=== PATIENT | female | born 2000 | race Caucasian/White ===

== ENCOUNTER 2022-08-28 13:39 | Emergency (ER) | payer MEDICAID, SELFPAY ==
[2022-08-28 13:40] VITALS: BP 133/86; PULSE 98; RESP 16; TEMP 37.1; O2SAT 98; BMI 28.6
--- NOTE | 2022-08-28 14:00 | RAD_ITS ---
STUDY: X-RAY - RIGHT SHOULDER REASON FOR EXAM: Female, 21 years old. FALL -- IN [place] TECHNIQUE: 4 view(s) of the shoulder. COMPARISON: None. FINDINGS: Normal glenohumeral articulation. Normal acromioclavicular joint. Normal acromion. Normal humeral head and visualized proximal humerus. The soft tissue structures are unremarkable. Normal visualized pulmonary apex. There is evidence of screw and lainey fixation of the thoracic spine. RAD/Shoulder min 2 Views IMPRESSION: Normal x-ray examination of the shoulder. Electronically Signed: Harsh White MD at 14:39 EDT ,
[2022-08-28 15:08] VITALS: RESP 16
--- NOTE | 2022-08-28 15:08 | EDS_ITS ---
HPI History of Present Illness Chief Complaint: Upper Extremity Injury Detail of Chief Complaint: Right shoulder injury Informant: patient Narrative Narrative: Patient presents the emergency department complaint of injury to her right shoul jose that occurred last evening. Patient states that she drank a bottle of vodka last night and she fell multiple times injuring her arm and shoulder. Patient is right-hand dominant. Patient states that 5 years ago she had 100 pound tree limb fall on her back and she sustained back fractures and has rods and screws in her back. Patient states she has a hard time lifting the arm up past 90 degrees secondary to pain. Patient denies other injuries. PFSH PFSH Home Medications hydrocodone-acetaminophen 5-325mg 5mg-325mg 1 tab PO Q4H PRN PRN Pain 2 days #10 TABLETS 08/28/22 [Rx Last Taken Unknown] naproxen 500 mg tablet 500 mg PO BID #14 tabs 08/28/22 [Rx Last Taken Unknown] Allergy/AdvReac Type Severity Reaction Status Date / Time No Known Allergies Allergy Verified 08/28/22 13:40 ROS ROS ED Review of Systems ROS Unobtainable: other Constitutional Constitutional ED: Reports lethargy; Denies chills, fever(s), sweats or weight loss Eyes Eyes: Denies blurry vision, change in vision or diplopia ENT ENT ED: Denies rhinorrhea or sore throat Cardiovascular Cardiovascular: Reports chest pain and racing heartbeat; Denies orthopnea Respiratory/Chest Respiratory/Chest: Reports dyspnea and dyspnea on exertion; Denies cough, orthopnea or sputum Gastrointestinal Gastrointestinal: Denies abdominal pain, diarrhea, nausea or vomiting Genitourinary Genitourinary ED: Denies dysuria, hematuria or urinary frequency Musculoskeletal Musculoskeletal: Reports other Details: Right shoulder injury ; Denies arthralgias, back pain, myalgias or neck pain Integumentary Denies abscess, Abrasions or rash Neurologic Neurologic: Denies headache(s) or weakness Psychiatric Psychiatric: Denies anxiety, depression or suicidal thoughts Endocrine Endocrinology: Denies polydipsia, polyphagia or polyuria Hematologic/Lymphatic Hematologic/Lymphatic: Denies easy bleeding, easy bruising or lymphadenopathy Allergic/Immunologic Allergic/Immunologic ED: Denies mouth swelling, tongue swelling or urticaria EXAM Physical Exam Const Vital Signs: 08/28/22 13:40 Temperature 98.7 F Temperature Source Temporal Pulse Rate 98 Respiratory Rate 16 Blood Pressure 133/86 H Blood Pressure Mean 101 Pulse Ox 98 Oxygen Delivery Method Room Air Positive well nourished and well developed General Appearance ED: well developed and NAD HEENT Reports TM's clear and moist mucous membranes normocephalic and atraumatic; Negative for trauma or tenderness Tympanic Membrane ED: Yes TM's clear Eyes PERRL and EOMs intact bilaterally General Eye ED: Negative for pale conjunctiva or scleral icterus Neck no lymphadenopathy, supple and no JVD General: Negative for tenderness Chest Wall inspection of chest normal and palpation of chest normal Chest: Negative for tenderness Resp normal respiratory effort and clear to auscultation bilaterally Effort and Inspection: Negative for respiratory distress or pain with movement Auscultation: Negative for rhonchi, wheezes or diminished lung sounds Cardio regular rate, regular rhythm, S1 normal heart sound, S2 normal heart sound and no murmurs Peripheral Pulses: pulses 2+ throughout GI normal to inspection, nondistended, normoactive bowel sounds, soft to palpation, non-tender, non-distended and no masses Back/Spine no CVA tenderness and no thoracic nor lumbar tenderness Extremity Extremity Narrative: Right arm-patient has some diffuse tenderness over the glenohumeral joint and humerus. Limited range of motion of the glenohumeral joint secondary to pain. She has a hard time abducting the arm. No obvious deformity to the humerus. She is neurovascular intact distally. General Extremety ED: Negative for edema General Extremity: Negative for edema Neuro oriented x3, CN's II-XII intact bilaterally, no sensory deficits noted and gait normal Sensorium / Orientation: awake, alert, oriented to person, oriented to place and oriented to time Motor Exam: strength 5/5 throughout and strength abnormal Psych mental status grossly normal Skin no rashes or lesions noted and no wounds MDM MDM MDM Narrative Medical decision making narrative: X-rays of her shoulder were negative for fracture. She understands I cannot rule out soft tissue injury or rotator cuff injury. She is given a sling. She is referred to orthopedics for follow-up. She given a prescription for few [place] for pain. Radiography Diagnostic Testing: Clinical Impression(s) from Imaging Studies Shoulder X-Ray 08/28/22 14:00 IMPRESSION: Normal x-ray examination of the shoulder. Electronically Signed: Harsh White MD at 14:39 EDT , Discharge Plan Triage Chief Complaint: Upper Extremity Injury ED Provider: Hilton Ramirez Dx/Rx/DC Orders Clinical Impression: Acute pain of right shoulder Instructions: ED Shoulder Sprain Prescriptions: New hydrocodone-acetaminophen [hydrocodone-acetaminophen] 5-325 mg tablet 1 tab PO Q4H PRN PRN (Reason: Pain) 2 Days Qty: 10 0RF naproxen 500 mg tablet 500 mg PO BID Qty: 14 0RF Primary Care Provider: Al Parker,Out of Referrals: Martin Pastor DO [Med Staff - Active Staff] - 3-5 Days [facility] Doctor,Out of [Primary Care Provider] - Disposition Disposition: Home, Self Care
== END 2022-08-28 15:40 | disposition home or self-care (01) ==
LOC: ED 15:39
PROVIDERS: Emergency Provider Emergency Medicine; PCP Nurse Practitioner Family; Visit Provider Emergency Medicine
DX: M25.511 Pain in right shoulder (principal); W19.XXXA Unspecified fall, initial encounter
CPT/HCPCS: 73030; 99283